=== PATIENT | female | born 2000 | race Hispanic/Latino ===

== ENCOUNTER → 2021-02-27 | Outpatient (REF) | payer OTHER ==
[2021-02-27 18:11] LABS: MEAN CORPUSCULAR HEMOGLOBIN 29.6 pg (27.0-33.0); MEAN CORPUSCULAR HGB CONC 34.9 g/dl (32.0-36.5); PLATELET COUNT, AUTOMATED 344 10^3/uL (150-450); RED BLOOD COUNT 5.06 10^6/uL (4.00-5.40); WHITE BLOOD COUNT 11.5 10^3/uL (4.0-10.0)
[2021-02-27 18:51] LABS: HCG, SERUM QUANTITATIVE 560 MIU/ML
[2021-02-27 18:55] LABS: HEPATITIS B SURFACE ANTIGEN NEGATIVE (NEGATIVE)
[2021-02-27 19:22] LABS: HEPATITIS C VIRUS ABY INDEX 0.1 INDEX (<0.8); HIV 1&2 SCREEN CENTAUR NEGATIVE (NEGATIVE)
== END ==
LOC: M LAB REF 16:17
PROVIDERS: ATTEND Obstetrics & Gynecology
DX: Z32.01 Encounter for pregnancy test, result positive (principal)

== ENCOUNTER → 2021-03-02 | Outpatient (REF) | payer OTHER | LOC: M LAB REF 13:52 | PROVIDERS: ATTEND Obstetrics & Gynecology | DX: O36.80X0 Pregnancy with inconclusive fetal viability, not applicable or unspecified (principal); Z3A.00 Weeks of gestation of pregnancy not specified ==

== ENCOUNTER → 2021-03-09 | Outpatient (REF) | payer OTHER | LOC: M LAB REF 12:29 | PROVIDERS: ATTEND Obstetrics & Gynecology | DX: O36.80X0 Pregnancy with inconclusive fetal viability, not applicable or unspecified (principal); Z3A.00 Weeks of gestation of pregnancy not specified ==

== ENCOUNTER → 2021-08-17 | Outpatient (CLI) | payer OTHER ==
[~2021-08-17] MED LIST: BUTACAP78 PO; PRENTAB9 PO
[2021-08-17 10:26] LABS: BASO % 0.2 % (0.0-1.0); EOS # 0.1 10^3/uL (0.0-0.5); EOS % 1.1 % (0.0-3.0); HEMATOCRIT 37.6 % (36.0-47.0); HEMOGLOBIN 12.8 g/dl (12.0-15.5); LYMPH # 1.8 10^3/uL (1.5-5.0); LYMPH % 20.9 % (24.0-44.0); MEAN CORPUSCULAR HEMOGLOBIN 29.6 pg (27.0-33.0); MEAN CORPUSCULAR VOLUME 86.8 fl (80.0-96.0); MONO # 0.4 10^3/uL (0.0-0.8); MONO % 4.2 % (2.0-8.0); NEUTROPHILS # 6.2 10^3/uL (1.5-8.5); NEUTROPHILS % 72.7 % (36.0-66.0); PLATELET COUNT, AUTOMATED 245 10^3/uL (150-450); RED BLOOD COUNT 4.33 10^6/uL (4.00-5.40); WHITE BLOOD COUNT 8.6 10^3/uL (4.0-10.0)
== END ==
LOC: M LAB 08:46
PROVIDERS: ATTEND Obstetrics & Gynecology
DX: Z34.82 Encounter for supervision of other normal pregnancy, second trimester (principal); Z3A.00 Weeks of gestation of pregnancy not specified

== ENCOUNTER → 2021-09-26 | Outpatient (CLI) | payer OTHER ==
[2021-09-26 10:54] LABS: BASO % 0.2 % (0.0-1.0); EOS # 0.1 10^3/uL (0.0-0.5); EOS % 0.7 % (0.0-3.0); HEMATOCRIT 37.3 % (36.0-47.0); HEMOGLOBIN 12.3 g/dl (12.0-15.5); LYMPH # 1.6 10^3/uL (1.5-5.0); LYMPH % 16.4 % (24.0-44.0); MONO # 0.5 10^3/uL (0.0-0.8); MONO % 5.2 % (2.0-8.0); NEUTROPHILS # 7.4 10^3/uL (1.5-8.5); NEUTROPHILS % 76.7 % (36.0-66.0); PLATELET COUNT, AUTOMATED 242 10^3/uL (150-450); RED BLOOD COUNT 4.39 10^6/uL (4.00-5.40); WHITE BLOOD COUNT 9.6 10^3/uL (4.0-10.0)
[2021-09-26 11:16] LABS: CREATININE, URINE 51.3 MG/DL; TOTAL PROTEIN 24 HOUR URINE 495.9 MG/24HR (50-150); URINE TOTAL PROTEIN 17.4 MG/DL (0-12)
[2021-09-26 11:20] LABS: ALT/SGPT 17 U/L (12-78); BILIRUBIN,TOTAL 0.2 MG/DL (0.2-1.0); CREATININE FOR GFR 0.53 MG/DL (0.55-1.30); GLOMERULAR FILTRATION RATE > 60.0 (>60); LDH LACTATE DEHYDROGENASE 171 U/L (84-246)
== END ==
LOC: M LAB 10:14
PROVIDERS: ATTEND Obstetrics & Gynecology
DX: O14.93 Unspecified pre-eclampsia, third trimester (principal)

== ENCOUNTER 2021-09-27 14:56 | Outpatient (CLI) | payer OTHER ==
[~2021-09-27] VITALS: Ht 167.6 cm; Wt 83.8 kg
[2021-09-27 15:27] VITALS: BP 132/67
== END 2021-09-27 17:28 | disposition home or self-care (01) ==
LOC: M LDO 14:56
PROVIDERS: ATTEND Obstetrics & Gynecology
DX: O60.03 Preterm labor without delivery, third trimester (principal); O34.219 Maternal care for unspecified type scar from previous cesarean delivery; Y92.9 Unspecified place or not applicable; Y93.9 Activity, unspecified; Y99.9 Unspecified external cause status; Z3A.34 34 weeks gestation of pregnancy
CPT/HCPCS: 59025; G0378; G0463

== ENCOUNTER 2021-10-07 11:49 | Emergency (ER) | payer OTHER ==
[~2021-10-07] VITALS: Ht 167.6 cm; Wt 85.1 kg
[2021-10-07 11:50] VITALS: BP 134/80
== END 2021-10-07 12:35 | disposition admitted as inpatient to this hospital (09) ==
LOC: M ED 11:49
DX: O26.92 Pregnancy related conditions, unspecified, second trimester (principal); R07.9 Chest pain, unspecified; Z3A.20 20 weeks gestation of pregnancy

== ENCOUNTER 2021-10-07 12:05 | Outpatient (CLI) | payer OTHER ==
[~2021-10-07] VITALS: Ht 167.6 cm; Wt 85.0 kg
[2021-10-07 12:24] VITALS: BP 112/65
[2021-10-07] MEDS ORDERED: HOME MED LIST COMPLETE! XX SCH (14:15)
== END 2021-10-07 14:52 | disposition home or self-care (01) ==
LOC: M LDO 12:05
PROVIDERS: ATTEND Specialist
DX: O26.893 Other specified pregnancy related conditions, third trimester (principal); R25.2 Cramp and spasm; R07.9 Chest pain, unspecified; Z3A.36 36 weeks gestation of pregnancy
CPT/HCPCS: 59025; 76815; 76816; 76820; 93005; G0463

== ENCOUNTER → 2021-10-09 | Outpatient (REF) | payer OTHER | LOC: M LAB REF 12:08 | PROVIDERS: ATTEND Obstetrics & Gynecology | DX: Z36.85 Encounter for antenatal screening for Streptococcus B (principal) ==

== ENCOUNTER 2021-10-21 10:58 | Inpatient (IN) | payer OTHER ==
[~2021-10-21] VITALS: Ht 167.6 cm; Wt 85.5 kg
[2021-10-21] VITALS (7 sets, daily range): BP systolic 113–121; BP diastolic 58–72
[~2021-10-21 10:58] MED LIST changes: -COLA100C5 PO; -IBUP80TA PO; -PERCOCET PO
[2021-10-21] MEDS ORDERED: HOME MED LIST COMPLETE! XX SCH (11:25)
[2021-10-21] MEDS ORDERED: LACTATED RINGER'S 1000 ML IV STA (12:26)
[2021-10-21] MEDS ORDERED: CARBOPROST TROMETHAMINE 250 MCG/ML AMP IM PRN (12:30)
[2021-10-21] MEDS ORDERED: AZITHROMYCIN INJ 500 MG, VIAL MATE ADAPTER 1 EACH in NS 250 ML IV ONE (12:30)
[2021-10-21] MEDS ORDERED: ceFAZolin SOD 2 GM in IV 1 EA IV ONE (12:30)
[2021-10-21] MEDS ORDERED: METHYLERGONOVINE MALEATE 0.2 MG/ML VIAL (J2210) IM PRN (12:30)
[2021-10-21] MEDS ORDERED: BICITRA 30ML SOLN UDC PO ONE (12:30)
[2021-10-21] MEDS ORDERED: LIDOCAINE 1% MDV 20ML VIAL INFIL PRN (12:30)
[2021-10-21] MEDS ORDERED: LR 1,000 ML IV SCH ×2 (12:30→15:25)
[2021-10-21] MEDS ORDERED: TRANEXAMIC ACID INJection 1,000 MG in NS 100 ML IV PRN (12:30)
[2021-10-21 13:02] LABS: HEMATOCRIT 38.2 % (36.0-47.0); MEAN CORPUSCULAR HEMOGLOBIN 27.8 pg (27.0-33.0); MEAN CORPUSCULAR VOLUME 81.8 fl (80.0-96.0); PLATELET COUNT, AUTOMATED 252 10^3/uL (150-450); RED BLOOD COUNT 4.67 10^6/uL (4.00-5.40); WHITE BLOOD COUNT 9.7 10^3/uL (4.0-10.0)
[2021-10-21] MEDS ORDERED: OXYTOCIN INJ 10 UNITS/ML VIAL (J2590) As Ordered ONE (13:07)
[2021-10-21] MEDS ORDERED: ONDANSETRON 4MG 2ML VIAL As Ordered ONE (13:07)
[2021-10-21] MEDS ORDERED: KETOROLAC 60MG 2ML VIAL As Ordered ONE (13:07)
[2021-10-21] MEDS ORDERED: MORPHINE PRES-FREE INJ 10 MG/10 ML VIAL As Ordered ONE (13:07)
[2021-10-21] MEDS ORDERED: OXYTOCIN DRIP 30 UNITS in IV 1 EA IV SCH (15:25)
[2021-10-21] MEDS ORDERED: PERCOCET 5MG/325MG TAB PO PRN (15:25)
[2021-10-21] MEDS ORDERED: SIMETHICONE 80MG CHEW TAB PO PRN (15:25)
[2021-10-21] MEDS ORDERED: ONDANSETRON 4MG 2ML VIAL IV PRN ×2 (15:25→15:30)
[2021-10-21] MEDS ORDERED: KETOROLAC 30 MG/ML 1ML VIAL IV SCH (15:25)
[2021-10-21] MEDS ORDERED: RHOGAM 300 MCG (1500 IU) INJ (J2790) IM SCH (15:25)
[2021-10-21] MEDS: SLF 3 ML SYR IV SCH ×2 (15:30→23:30)
[2021-10-21] MEDS ORDERED: NALOXONE INJ 0.4MG/1ML VIAL (J2310 PER 1MG) IV PRN ×2 (15:30)
[2021-10-21] MEDS ORDERED: **NOTE PATIENT COMMENT** MISC XX SCH (15:30)
[2021-10-21] MEDS ORDERED: diphenhydrAMINE 50MG/ML VIAL (J1200) IV PRN (15:30)
[2021-10-21] MEDS ORDERED: HYDROMORPHONE HCL 0.5 MG/ 0.5 ML SYRINGE (J1170 PER 1) IV PRN (15:30)
[2021-10-21] MEDS ORDERED: oxyCODONE 5MG TAB PO PRN (15:30)
[2021-10-21] MEDS ORDERED: MEPERIDINE INJ 25 MG/ML VIAL (J2175) IV PRN (15:30)
[2021-10-21] MEDS ORDERED: fentaNYL 100 MCG/2 ML INJECTION IV PRN (15:30)
[2021-10-21] MEDS ORDERED: METOCLOPRAMIDE INJ 10MG/2ML VIAL (J2765 PER 1) IV PRN (15:30)
[2021-10-21] MEDS ORDERED: OXYTOCIN 30 UNITS IN 0.9% NaCl 500ML IV BAG (J2590) As Ordered ONE (15:56)
[2021-10-21] MEDS: PERCOCET 5MG/325MG TAB PO PRN (19:50)
[2021-10-21] MEDS: DOCUSATE SODIUM 100MG CAPSULE PO SCH (21:07)
[2021-10-21] MEDS: KETOROLAC 30 MG/ML 1ML VIAL IV SCH (21:07)
[2021-10-22 01:51] VITALS: BP 118/57
[2021-10-22] MEDS: KETOROLAC 30 MG/ML 1ML VIAL IV SCH ×2 (03:04→09:35)
[2021-10-22 06:24] VITALS: BP 109/55
[2021-10-22] MEDS: PERCOCET 5MG/325MG TAB PO PRN ×2 (06:30→21:16)
[2021-10-22 07:26] LABS: HEMATOCRIT 34.6 % (36.0-47.0); HEMOGLOBIN 11.6 g/dl (12.0-15.5); MEAN CORPUSCULAR HEMOGLOBIN 28.1 pg (27.0-33.0); MEAN CORPUSCULAR HGB CONC 33.5 g/dl (32.0-36.5); MEAN CORPUSCULAR VOLUME 83.8 fl (80.0-96.0); PLATELET COUNT, AUTOMATED 214 10^3/uL (150-450); RED BLOOD COUNT 4.13 10^6/uL (4.00-5.40)
[2021-10-22] MEDS: PRENATAL VITAMINS CHEWABLE TABLET PO SCH (08:37)
[2021-10-22] MEDS: DOCUSATE SODIUM 100MG CAPSULE PO SCH ×2 (08:37→20:17)
[2021-10-22 10:00] VITALS: BP 109/58
[2021-10-22 14:00] VITALS: BP 123/71
[2021-10-22 18:00] VITALS: BP 133/64
[2021-10-22] MEDS: IBUPROFEN 800 MG TAB PO SCH (18:34)
[2021-10-22] MEDS: SLF 3 ML SYR IV SCH (18:36)
[2021-10-22 21:53] VITALS: BP 119/66
[2021-10-23] MEDS: IBUPROFEN 800 MG TAB PO SCH ×2 (01:58→09:36)
[2021-10-23 02:00] VITALS: BP 118/58
[2021-10-23 06:00] VITALS: BP 122/64
[2021-10-23] MEDS: PERCOCET 5MG/325MG TAB PO PRN (07:58)
[2021-10-23] MEDS: PRENATAL VITAMINS CHEWABLE TABLET PO SCH (07:58)
[2021-10-23] MEDS: DOCUSATE SODIUM 100MG CAPSULE PO SCH (07:58)
[2021-10-23] MEDS ORDERED: MEASLES,MUMPS,RUBELLA VACCINE INJ (MMR-II) (90707) SC.IMMUN ONE (09:00)
[2021-10-23] MEDS ORDERED: BOOSTRIX/ADACEL VACCINE (DIPHTH/PERTUSS/ACELL/TETANUS) 0.5ML SYR IM.IMMUN ONE (09:00)
[2021-10-23] MEDS ORDERED: IBUP80TA PO (09:24)
[2021-10-23] MEDS ORDERED: PERCOCET PO (09:24)
[2021-10-23] MEDS ORDERED: COLA100C5 PO (09:24)
[2021-10-23 10:00] VITALS: BP 122/65
== END 2021-10-23 13:03 | disposition home or self-care (01) | DRG 773 ==
LOC: M LDO 10:58 → M LDI 12:38 → M OBS 16:32
PROVIDERS: ADMIT Obstetrics & Gynecology; ATTEND Obstetrics & Gynecology
PROC: 10D00Z1 Extraction of Products of Conception, Low, Open Approach (ICD-10-PCS; principal; 2021-10-21 13:30)
DX: O34.211 Maternal care for low transverse scar from previous cesarean delivery (principal); Z37.0 Single live birth; Z3A.38 38 weeks gestation of pregnancy

== ENCOUNTER → 2021-10-21 | Outpatient (CLI) | payer OTHER ==
[~2021-10-21] MED LIST changes: +COLA100C5 PO; +IBUP80TA PO; +PERCOCET PO
== END ==
LOC: M LABSMTC 09:00
PROVIDERS: ATTEND Anesthesiology
DX: Z20.828 Contact with and (suspected) exposure to other viral communicable diseases (principal); Z11.59 Encounter for screening for other viral diseases